=== PATIENT | female | born 1955 | race Caucasian/White ===

== ENCOUNTER 2022-03-02 15:54 | Outpatient (CLI) | payer OTHER, SELFPAY | END 2022-03-02 15:55 | disposition home or self-care (01) | LOC: CHSLAB 15:58 | PROVIDERS: PCP Specialist; Visit Provider Specialist | DX: C44.729 Squamous cell carcinoma of skin of left lower limb, including hip (principal) | CPT/HCPCS: 88305 ==

== ENCOUNTER 2022-08-12 14:54 | Outpatient (CLI) | payer MEDICARE, SELFPAY | END 2022-08-12 14:55 | disposition home or self-care (01) | PROVIDERS: PCP Specialist; Visit Provider Specialist | DX: L85.9 Epidermal thickening, unspecified (principal) | CPT/HCPCS: 88305 ==

== ENCOUNTER 2023-11-29 13:23 | Outpatient (CLI) | payer MEDICARE, SELFPAY | END 2023-11-29 13:24 | disposition home or self-care (01) | PROVIDERS: Visit Provider Specialist | DX: L57.0 Actinic keratosis (principal) | CPT/HCPCS: 88305 ==